=== PATIENT | female | born 1945 | race Caucasian/White ===

== ENCOUNTER 2018-08-01 12:28 | Emergency (ER) | payer MEDICARE, MEDICAID ==
[~2018-08-01] VITALS: Ht 160 cm; Wt 68.0 kg
[2018-08-01 12:50] VITALS: BP 157/73
[2018-08-01] MEDS ORDERED: HYDR-2761 PO (13:28)
--- NOTE | 2018-08-01 13:29 | PHYS DOC ---
Past Medical History Past Medical History: No Pertinent History Past Surgical History: No Surgical History Alcohol Use: None Drug Use: None Adult General Chief Complaint Chief Complaint: DENTAL PROBLEM HPI HPI Patient is a 73 year old female who presents to the emergency room today with complaints of right lower dental pain for the last 2 months. Patient states that she cannot wear her lower dentures because the pain hurt so bad. She states that her dentist sent her to the emergency room because of concerns of an exposed nerve. Patient denies any fever, swelling, or redness of her gums. She states that the area is tender to touch. Review of Systems Review of Systems Constitutional: Denies fever or chills [] HENT: See history of present illness Integument: Denies rash or skin lesions [] Neurologic: Denies headache, focal weakness or sensory changes [] Complete systems were reviewed and found to be within normal limits, except as documented in this note. Allergies Allergies Allergies Coded Allergies Type Severity Reaction Last Updated Verified No Known Drug Allergies 08/01/18 No Physical Exam Physical Exam Constitutional: Well developed, well nourished, no acute distress, non-toxic appearance. [] HENT: Normocephalic, atraumatic, bilateral external ears normal, oropharynx moist, no oral exudates, or tenderness with palpation of right lower quadrant gingiva, no gingival erythema or swelling noted, nose normal. [] Eyes:conjunctiva normal, no discharge. [] Skin: Warm, dry, no erythema, no rash. [] Neurologic: Alert and oriented X 3, normal motor function, normal sensory function, no focal deficits noted. [] Psychologic: Affect normal, judgement normal, mood normal. [] Current Patient Data Vital Signs Vital Signs Date Time Temp Pulse Resp B/P (MAP) Pulse Ox O2 Delivery O2 Flow Rate FiO2 08/01/18 12:50 97.6 104 16 157/73 (101) 96 Room Air 97.6 EKG EKG [] Radiology/Procedures Radiology/Procedures [] Course & Med Decision Making Course & Med Decision Making Pertinent Labs and Imaging studies reviewed. (See chart for details) [] Dragon Disclaimer Dragon Disclaimer This electronic medical record was generated, in whole or in part, using a voice recognition dictation system. Departure Departure Impression: Primary Impression: Pain of gingiva Disposition: HOME, SELF-CARE Condition: STABLE Patient Instructions: Dental Pain, [id number] Additional Instructions: Fill prescription and use as directed for extreme pain. Use the dental referral list provided to follow-up with a dental [place] for further evaluation and treatment of pain. Return to the emergency room if her symptoms worsen. Scripts Hydrocodone Bit/Acetaminophen (HYDROCODONE-APAP 5-325 ) 1 Tab Tablet 1 TAB PO PRN Q6HRS PRN for PAIN for 2 Days, #5 TAB 0 Refills Prov: TERESA CASTANON APRN 08/01/18 TERESA CASTANON APRN Aug 01, 2018 13:29
== END 2018-08-01 14:00 | disposition home or self-care (01) ==
LOC: ER 12:28
DX: K06.8 Other specified disorders of gingiva and edentulous alveolar ridge (principal)
CPT/HCPCS: 99283

== ENCOUNTER 2021-09-06 17:46 | Inpatient (IN) | payer MEDICAID, MEDICARE ==
[~2021-09-06] VITALS: Ht 160 cm; Wt 50.6 kg
[~2021-09-06 17:46] MED LIST: HYDR-2761 PO
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
[2021-09-06] MEDS ORDERED: IV NORMAL SALINE 1000ML BAG 1,000 ML IV ONE (20:00)
[2021-09-06 20:19] LABS: BASO % 1 % (0-3); EOS # 0.1 x10^3/uL (0.0-0.7); EOS % 1 % (0-3); HEMATOCRIT 32.9 % (36.0-47.0); HEMOGLOBIN 11.1 g/dL (12.0-15.5); LYMPH # 1.3 x10^3/uL (1.0-4.8); LYMPH % 24 % (24-48); MEAN CORPUSCULAR HEMOGLOBIN 30 pg (25-35); MEAN CORPUSCULAR HGB CONC 34 g/dL (31-37); MEAN CORPUSCULAR VOLUME 88 fL (79-100); MONO # 0.5 x10^3/uL (0.0-1.1); MONO % 9 % (0-9); NEUT # 3.5 x10^3/uL (1.8-7.7); NEUT % 65 % (31-73); PLATELET COUNT 207 x10^3/uL (140-400); RED BLOOD COUNT 3.75 x10^6/uL (3.50-5.40); WHITE BLOOD COUNT 5.4 x10^3/uL (4.0-11.0)
[2021-09-06 20:21] LABS: BILIRUBIN,URINE MODERATE (NEG); CLARITY,URINE CLEAR; COLOR,URINE AMBER; NITRITE,URINE POSITIVE (NEG); PROTEIN,URINE 30 mg/dL (NEG-TRACE)
[2021-09-06 20:27] LABS: BACTERIA,URINE MODERATE /HPF (0-FEW)
[2021-09-06 20:28] LABS: WBC,URINE 20-40 /HPF (0-4)
[2021-09-06 20:30] LABS: CALCIUM 8.8 mg/dL (8.5-10.1); GFR 53.8; POTASSIUM 4.2 mmol/L (3.5-5.1)
[2021-09-06 20:37] LABS: ALBUMIN 3.9 g/dL (3.4-5.0); ALBUMIN/GLOBULIN RATIO 0.9 (1.0-1.7); MAGNESIUM 2.2 mg/dL (1.8-2.4); PHOSPHORUS 3.6 mg/dL (2.6-4.7); TOTAL BILIRUBIN 1.1 mg/dL (0.2-1.0); TOTAL PROTEIN 8.2 g/dL (6.4-8.2)
[2021-09-06] MEDS ORDERED: cefTRIAXone IV Push 1 GM VIAL. IVP ONE (20:45)
[2021-09-06] MEDS ORDERED: ONDANSETRON PF 4 MG/2 ML VIAL. IVP PRN ×2 (21:30→22:30)
[2021-09-06] MEDS ORDERED: ACETAMINOPHEN 325 MG TABLET. PO PRN ×2 (21:30→22:30)
[2021-09-06 22:40] VITALS: BP 182/83
[2021-09-06] MEDS ORDERED: INFLUENZA VAX SCREEN BY RX. MC ONE (23:45)
[2021-09-06] MEDS ORDERED: PARO7.5C2 PO (23:48)
[2021-09-07] MEDS ORDERED: guaiFENesin DM 200MG/20MG 10 ML SYRUP PO PRN (00:15)
[2021-09-07] MEDS ORDERED: SENNOSIDES/DOCUSATE 8.6/50MG TABLET. PO PRN (00:15)
[2021-09-07] MEDS ORDERED: fentaNYL PF VIAL 100 MCG/2 ML VIAL IVP PRN (00:15)
[2021-09-07] MEDS: IV NORMAL SALINE 1000ML BAG 1,000 ML IV SCH ×2 (01:09→12:11)
[2021-09-07 03:00] VITALS: BP 178/75
--- NOTE | 2021-09-07 04:40 | NUR ---
Paroxetine pills 29 tablets counted and sent to pharmacy, receipt tab #[id number] placed in sleeve in chart.
[2021-09-07 04:50] LABS: ALBUMIN 3.2 g/dL (3.4-5.0); ALBUMIN/GLOBULIN RATIO 0.7 (1.0-1.7); CALCIUM 8.1 mg/dL (8.5-10.1); CREATININE 0.8 mg/dL (0.6-1.0); GFR 69.6; POTASSIUM 3.1 mmol/L (3.5-5.1); TOTAL BILIRUBIN 0.9 mg/dL (0.2-1.0); TOTAL PROTEIN 7.5 g/dL (6.4-8.2)
[2021-09-07 07:15] VITALS: BP 171/78
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
[2021-09-07] MEDS: cefTRIAXone IV Push 1 GM VIAL. IVP SCH (08:38)
[2021-09-07] MEDS: ENOXAPARIN 40 MG/0.4 ML SYRINGE. SQ SCH (08:38)
[2021-09-07] MEDS ORDERED: FLU VACC QUAD 21-22 (6MOS+) PF 0.5 ML SYRINGE. VAX IM ONE (09:00)
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
[2021-09-07 10:46] VITALS: BP 160/71
--- NOTE | 2021-09-07 12:08 | HP ---
DATE OF SERVICE: 09/07/2021 ADMIT DATE: 09/07/2021 CHIEF COMPLAINT: Inability to care for herself and breast mass. HISTORY OF PRESENT ILLNESS: The patient is a pleasant 76-year-old female who lives alone, but apparently has not been going to the doctor. She has slowly developed inability to care for herself. The granddaughter became the DPOA recently. There is also a right breast mass. I discussed the case with ER physician. We are going to admit the patient with consultation to General Surgery and I suspect we may have to get her to long-term care afterwards. PAST MEDICAL HISTORY: Depression, anxiety. ALLERGIES: None. FAMILY HISTORY: Diabetes and breast cancer. SOCIAL HISTORY: She does not drink, smoke or take drugs. She is retired. She lives alone MEDICATIONS: Reviewed, please refer to the MRAD. REVIEW OF SYSTEMS: GENERAL: She complains of weakness. SKIN: No bruising, hair changes or rashes. EYES: No blurred, double or loss of vision. NOSE AND THROAT: No history of nosebleeds, hoarseness or sore throat. HEART: No history of palpitations, chest pain or shortness of breath on exertion. LUNGS: Denies cough, hemoptysis, wheezing or shortness of breath. GASTROINTESTINAL: Denies changes in appetite, nausea, vomiting, diarrhea or constipation. GENITOURINARY: No history of frequency, urgency, hesitancy or nocturia. NEUROLOGIC : She states she uses a wheelchair. PSYCHIATRIC: No history of panic, anxiety or depression. ENDOCRINE: No history of heat or cold intolerance, polyuria or polydipsia. EXTREMITIES: Denies muscle weakness, joint pain, pain on walking or stiffness. PHYSICAL EXAMINATION: VITALS: Within normal limits and are stable. GENERAL: She is weak. HEENT: Normal cephalic atraumatic, external auditory canals are patent EYES: Extraocular muscles are intact, pupils are equally round and reactive to light and accommodation MUSKULOSKELETAL: Well developed, well nourished, good range of motion ENDOCRINE: No thyromegaly was palpated LYMPHATICS: No cervical chain or axillary nodes were noted HEMATOPOIETIC: No bruising NECK: Supple, no JVD, no thyromegaly was noted. LUNGS: Clear to auscultation in all lung long without rhonchi or wheezing. HEART: RRR, S1, S2 present. Peripheral pulses intact, no obvious murmurs were noted. ABDOMEN: Soft, nontender. Positive bowel sounds no organomegaly, normal bowel sounds. EXTREMITIES: She has 1-2+ edema in her lower extremities. NEUROLOGIC: She is very weak. PSYCHIATRIC: She is a little anxious. SKIN: She has a right breast mass. VASCULAR: Good capillary refill, neurovascular bundle appears to be intact. Hemoglobin 11.1. Electrolytes are normal other than potassium of 3.1. ASSESSMENT AND PLAN: Inability to care for herself, probable early failure to thrive, breast mass on the right, hypokalemia and anemia. The patient will be admitted. We will consult General Surgery. Encourage p.o. intake. PT, OT. Trend labs. Home meds. Deep venous thrombosis prophylaxis. Full code. We have added amlodipine 5 mg a day. marine services technician consult. Check TSH, flu vaccine, p.r.n. Tylenol. Long-term prognosis is guarded. CHRISTI/FILIPE DR: [place] TID: [id number]
[2021-09-07] MEDS ORDERED: BENZOCAINE 10% ORAL GEL 7GM TUBE. TP PRN (12:15)
[2021-09-07 14:51] VITALS: BP 156/69
[2021-09-07] MEDS ORDERED: POTASSIUM CHLORIDE 20 MEQ TABLET.ER. PO ONE (15:00)
[2021-09-07 19:00] VITALS: BP 113/56
[2021-09-07] MEDS: LACTOBACILLUS RHAMNOSUS GG 1 CAPSULE. PO SCH (20:57)
[2021-09-07 23:04] VITALS: BP 137/70
[2021-09-08] MEDS: IV NORMAL SALINE 1000ML BAG 1,000 ML IV SCH (02:40)
[2021-09-08 03:00] VITALS: BP 149/75
[2021-09-08 07:15] VITALS: BP 114/47
[2021-09-08] MEDS: LACTOBACILLUS RHAMNOSUS GG 1 CAPSULE. PO SCH (08:46)
[2021-09-08] MEDS: ENOXAPARIN 40 MG/0.4 ML SYRINGE. SQ SCH (08:47)
[2021-09-08] MEDS: cefTRIAXone IV Push 1 GM VIAL. IVP SCH (08:48)
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
--- NOTE | 2021-09-08 11:07 | NUR ---
TREASURE following. Discussed with RN, TREASURE spoke with pt's granddaughter/DPJAIDEN Bruce (ph: [phone]), pt was going to go to [facility] in [place] as emergency placement, so they are agreeable to SNF referral to be made there. TREASURE faxed referral and left a voicemail to double check if facility is in network with pt's [employer] plan, awaiting return call. Janis reported she had just received notice Medicaid for LTC has been approved for pt with . TREASURE will continue to follow. Addendum: 09/08/21 at 1329 by PAULINA AMANDA Pt accepted at [facility] in [place] for SNF. RN and sneha Bruce notified. Discharge orders faxed, awaiting transportation time. Addendum: 09/08/21 at 1406 by PAULINA AMANDA Transportation arranged by [place] for [address]. RN and family notified.
[2021-09-08 11:16] VITALS: BP 151/63
[2021-09-08] MEDS ORDERED: AMLO-186 PO (11:35)
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
--- NOTE | 2021-09-08 12:00 | DS ---
DATE OF DISCHARGE: 09/08/2021 ADMITTING DIAGNOSES: Inability to care for herself with incidental finding of a urinary tract infection and a right breast mass, hypokalemia and anemia. DISCHARGE DIAGNOSES: Resolving urinary tract infection, chronic right breast mass (the patient states she has had this for years, but we were not quite sure. We did consult General Surgery. They are going to followup with her next week to consider a biopsy.) Depression, anxiety. HOSPITAL COURSE: The patient is a pleasant elderly female who presented from home alone. She is unable to take care of herself and does not go to doctor. Basically, she was admitted for IV antibiotics as she has a UTI. We also discovered she has this right breast mass, but she states she has had it for years. She was also hypokalemic. We gave her fluids and antibiotics, replaced her potassium. Today, I saw and examined her. She is doing well. General Surgery would like to follow up as an outpatient to consider a biopsy. I spoke with case management, they have the patient accepted at [facility]. We plan to discharge her there. DISPOSITION: [facility]. ACTIVITY: As tolerated. DIET: Low sodium. MEDICATIONS: Amlodipine 5 a day and paroxetine 30 a day. TOTAL TIME: [address]: [place] TID: [id number]
[2021-09-08 15:11] VITALS: BP 128/80
--- NOTE | 2021-09-08 16:26 | NUR ---
Discharge Note: [facility] [place] Discharge instructions and discharge home medications reviewed with Other facility and a copy given. All questions have been answered and understanding verbalized. The following instructions and handouts were given: Diet, activity, medication list and follow up instructions provided to Toi Lopez. Granddaughter Annette notified of patient discharge. Discontinued lines and drains: Peripheral IV discontinued and catheter intact. [facility]
== END 2021-09-08 16:00 | DRG 690 ==
LOC: ER 17:46 → 4 NORTH 22:12
PROVIDERS: ADMIT Internal Medicine; ATTEND Internal Medicine
DX: N39.0 Urinary tract infection, site not specified (principal); E87.6 Hypokalemia; D64.9 Anemia, unspecified; F32.A Depression, unspecified; F41.9 Anxiety disorder, unspecified; G25.81 Restless legs syndrome; N63.10 Unspecified lump in the right breast, unspecified quadrant; R32 Unspecified urinary incontinence; R62.7 Adult failure to thrive; Z74.01 Bed confinement status; Z80.3 Family history of malignant neoplasm of breast; Z83.3 Family history of diabetes mellitus; Z87.891 Personal history of nicotine dependence; Z90.710 Acquired absence of both cervix and uterus; Z99.3 Dependence on wheelchair; Z60.2 Problems related to living alone; Z20.822 Contact with and (suspected) exposure to COVID-19
CPT/HCPCS: 36415; 80053; 81001; 82550; 82607; 83540; 83550; 83605; 83735; 84100; 84443; 85025; 87040; 87086; 87186; 90471; 90686; 96361; 96374; J0696; J1650; J7030; U0003; U0005; 97530-GO; 97530-GP; 97535-GO; 99285-25; G0378